=== PATIENT | male | born 2000 ===

== ENCOUNTER 2019-05-14 13:36 | Emergency (ER) | payer SELFPAY ==
[2019-05-14 14:18] LABS: #Basophils 0.1 thou/uL (0.0-0.2); #Monocytes 0.5 thou/uL (0.11-0.59); #Neutrophils 4.6 thou/uL (1.40-6.50); %Basophils 0.8 % (0.0-1.0); %Eosinophils 0.2 % (0.0-10.0); %Monocytes 6.5 % (0.0-4.0); %Neutrophils 64.6 % (31.0-61.0); Hemoglobin 15.6 g/dL (14.0-18.0); Mean Corpuscular HGB CONC 33.7 g/dL (32.0-36.0); Mean Corpuscular Hemoglobin 31.4 pg (25.0-35.0); Mean Corpuscular Volume 93.1 fL (78.0-98.0); Mean Platelet Volume 6.3 fL (7.4-10.4); Platelet Count 249 thou/uL (130-400); RBC Distribution Width 11.8 % (11.5-14.5); Red Blood Cell (RBC) Count 4.96 mill/uL (4.00-5.20); White Blood Cell (WBC) Count 7.1 thou/uL (4.8-10.8)
[2019-05-14 14:39] LABS: Anion Gap 15 mmol/L (10-20); BUN (Urea Nitrogen) 13 mg/dL (8.4-21.0); Calc. Creatinine Clearance 0 mL/min (70-130); Calcium 9.8 mg/dL (7.8-10.44); Carbon Dioxide 23 mmol/L (22-29); Chloride 105 mmol/L (98-107); Estimated GFR-MDRD 80; Glucose 98 mg/dL (70-105); Potassium 3.9 mmol/L (3.5-5.1); Sodium 139 mmol/L (136-145)
--- NOTE | 2019-05-14 14:45 | ULT ---
Exam: Scrotal ultrasound with color and spectral Doppler imaging: HISTORY: Right-sided testicular swelling for one week FINDINGS: Right testes measures 4.2 x 2.1 x 2.3 cm. Left testes measures 3.9 x 2.1 x 2.8 cm. Trace hydrocele. Epididymal regions appear unremarkable. Vascular duplex demonstrates arterial inflow and venous outflow to both testes. No evidence for testi cular torsion. No evidence for solid intratesticular mass. IMPRESSION: Unremarkable bilateral testicular ultrasound. No solid intratesticular mass or testicular torsion.
== END 2019-05-14 15:19 | disposition home or self-care (01) ==
LOC: ERS 13:36
DX: N43.3 Hydrocele, unspecified (principal)
CPT/HCPCS: 36415; 76870; 80048; 85025